=== PATIENT | male | born 1950 | race Caucasian/White ===

== ENCOUNTER 2023-11-06 14:23 | Inpatient (IN) | payer OTHER, MEDICARE ==
[~2023-11-06] VITALS: Ht 170.2 cm; Wt 70.8 kg
[2023-11-06 14:48] VITALS: BP_SYST 56; PULSE 62; RESP 19; TEMP 97.2; O2SAT 96
[2023-11-06 15:11] LABS: HEMOGLOBIN 10.5 g/dL (14.0-18.0); MEAN CORPUSCULAR HEMOGLOBIN 38 pg (27-31); MEAN CORPUSCULAR HGB CONC 34 % (32-36); MEAN CORPUSCULAR VOLUME 111 fL (79.0-98.0); PLATELET COUNT (AUTO) 184 K/uL (130-430); RED BLOOD CELL COUNT(AUTO) 2.78 MIL/uL (4.2-6.2); RED CELL DISTRIBUTION WIDTH 14.3 % (9.0-15.0); WHITE BLOOD COUNT (AUTO) 4.9 K/uL (4.8-10.8)
[2023-11-06] MEDS ORDERED: NACL 0.9% 2,000 ML IV ONE (15:15)
[2023-11-06] MEDS ORDERED: ALBUMIN HUMAN 5% 500 ML IV ONE ×2 (15:15)
[2023-11-06 15:23] LABS: INR 1.1 (0.80-1.20); PROTHROMBIN TIME 11.3 SECS (9.5-12.5)
[2023-11-06 15:28] LABS: ANION GAP 20 (5-15); CALCIUM 9.6 mg/dL (8.4-11.0); CARBON DIOXIDE 17 mmol/L (23-29); CHLORIDE 87 mmol/L (98-107); CREATININE 5.38 mg/dL (0.55-1.30); GLUCOSE 100 mg/dL (74-106); POTASSIUM 4.7 mmol/L (3.5-5.1); SODIUM SERUM 124 mmol/L (136-145); UREA NITROGEN, BLOOD 89 mg/dL (8-21)
[2023-11-06 15:35] LABS: ALANINE AMINOTRANSFERASE 49 U/L (12-78); ALBUMIN 2.2 g/dL (3.4-4.8); ASPARTATE AMINOTRANSFERASE 59 U/L (10-37); BILIRUBIN,DIRECT 0.4 mg/dL (0.0-0.3); CREATINE KINASE, TOTAL 87 U/L (39-308); FREE T4 (FREE THYROXINE) 1.1 ng/dL (0.6-1.6); THYROID STIMULATING HORMONE 3.85 uIu/mL (0.34-4.82); TOTAL BILIRUBIN 0.6 mg/dL (0.0-1.0)
[2023-11-06 15:38] LABS: ATYPICAL LYMPHOCYTES % 1 % (0-0); BAND % (MANUAL) 5 % (0-6); LYMPHOCYTES % (MANUAL) 1 % (20-46); MONOCYTES % (MANUAL) 8 % (0-11); PLATELET ESTIMATE ADEQUATE (ADEQUATE)
[2023-11-06 15:40] LABS: BASOPHILS % (MANUAL) 0 % (0-2); EOSINOPHILS % (MANUAL) 0 % (0-7)
[2023-11-06 15:49] LABS: ACETONE, SERUM NEGATIVE (NEGATIVE)
[2023-11-06] MEDS ORDERED: HYDR500C2 PO (17:06)
[2023-11-06] MEDS ORDERED: LISI10TA29 PO (17:06)
[2023-11-06] MEDS ORDERED: OXYB5TAB16 PO (17:06)
[2023-11-06] MEDS ORDERED: LOM2.5 PO (17:06)
[2023-11-06] MEDS ORDERED: ASPI-1077 PO (17:07)
[2023-11-06] MEDS ORDERED: CHOL100038 PO (17:07)
[2023-11-06 17:20] LABS: BILIRUBIN,URINE NEGATIVE (NEGATIVE); BLOOD, URINE 3+ (NEGATIVE); CLARITY/URINE SL CLOUDY (CLEAR); COLOR,URINE YELLOW (YELLOW); GLUCOSE,URINE NEGATIVE (NEGATIVE); KETONES,URINE NEGATIVE (NEGATIVE); LEUKOCYTE ESTERASE ,URINE 2+ (NEGATIVE); NITRITE, URINE NEGATIVE (NEGATIVE); PROTEIN URINE 2+ (NEGATIVE); UROBILINOGEN,URINE 0.2 (0.2-1.0)
[2023-11-06 17:30] LABS: WBC,URINE >100 /HPF (0-3)
[2023-11-06 17:31] LABS: BACTERIA,URINE MODERATE /HPF (None Seen); MUCUS,URINE None Seen /LPF (None Seen)
[2023-11-06] MEDS ORDERED: D5NS 1,000 ML IV SCH (18:00)
[2023-11-06] MEDS ORDERED: ONDANSETRON HCL 4 MG/2 ML VIAL IVP PRN (21:15)
[2023-11-06] MEDS ORDERED: NALOXONE HCL 0.4 MG/ML AMP (NARCAN) IVP PRN ×2 (21:15)
[2023-11-06] MEDS ORDERED: HYDROcodone/ACETAMIN 10-325 MG TAB PO PRN (21:15)
[2023-11-06] MEDS ORDERED: ACETAMINOPHEN 325 MG TABLET PO PRN (21:15)
[2023-11-06] MEDS ORDERED: DIPHENOXYLATE HCL/ATROP SULF 2.5 MG TAB PO PRN (21:15)
[2023-11-06] MEDS ORDERED: cefTRIAXone 1 GM VIAL ONE (21:54)
[2023-11-06] MEDS: cefTRIAXone 1 GM in D5W 50 ML IV SCH (21:56)
[2023-11-06] MEDS ORDERED: NACL 0.9% 1,000 ML IV ONE (22:30)
[2023-11-06] MEDS ORDERED: NOREPINEPHRINE BITARTRATE 4 MG in NS 246 ML IV PRN (22:30)
[2023-11-06] MEDS ORDERED: NOREPINEPHRINE 4 MG/4 ML VIAL IV ONE (23:25)
[2023-11-06 23:30] VITALS: BP_SYST 95; PULSE 109; RESP 18; TEMP 97; O2SAT 94
[2023-11-06] MEDS: LORazepam 2 MG/ML VIAL IVP PRN (23:46)
[2023-11-07] VITALS (28 sets, daily range): BP systolic 91–152; PULSE 81–121; RESP 12–30; TEMP 97–98.5; O2SAT 94–100
[2023-11-07] MEDS ORDERED: SODIUM BICARBONATE 8.4% JECT 50 MEQ/50 ML SYRINGE ONE ×2 (02:53→15:10)
[2023-11-07] MEDS: SODIUM BICARBONATE 8.4% JECT 50 MEQ in D5/0.45 NS 1,000 ML IV SCH ×3 (02:56→20:41)
[2023-11-07] MEDS: LORazepam 2 MG/ML VIAL IVP PRN ×3 (04:10→15:01)
[2023-11-07 05:54] LABS: ANION GAP 17 (5-15); CALCIUM 8.2 mg/dL (8.4-11.0); CARBON DIOXIDE 14 mmol/L (23-29); CHLORIDE 99 mmol/L (98-107); CREATININE 4.39 mg/dL (0.55-1.30); GLUCOSE 108 mg/dL (74-106); PHOSPHORUS 3.7 mg/dL (2.7-4.5); POTASSIUM 4.2 mmol/L (3.5-5.1); SODIUM SERUM 130 mmol/L (136-145); UREA NITROGEN, BLOOD 79 mg/dL (8-21)
[2023-11-07 06:07] LABS: BASOPHILS % (AUTO) 1.7 % (0.0-2.0); EOSINOPHILS % (AUTO) 1.7 % (0.0-4.0); HEMOGLOBIN 9.3 g/dL (14.0-18.0); LYMPHOCYTES % (AUTO) 1.2 % (20.5-51.5); MEAN CORPUSCULAR HEMOGLOBIN 38 pg (27-31); MEAN CORPUSCULAR HGB CONC 34 % (32-36); MEAN CORPUSCULAR VOLUME 111 fL (79.0-98.0); MONOCYTES # (AUTO) 0.1 K/uL (0.0-1.0); MONOCYTES % (AUTO) 5.6 % (1.7-9.3); NEUTROPHILS # (AUTO) 1.9 K/uL (1.8-7.7); NEUTROPHILS % (AUTO) 89.8 % (40.0-70.0); PLATELET COUNT (AUTO) 123 K/uL (130-430); RED BLOOD CELL COUNT(AUTO) 2.43 MIL/uL (4.2-6.2)
[2023-11-07 08:04] LABS: WHITE BLOOD COUNT (AUTO) 2.2 K/uL (4.8-10.8)
[2023-11-07] MEDS ORDERED: HYDROXYUREA 500 MG CAPSULE (HYDREA) PO SCH (09:00)
[2023-11-07] MEDS: ASPIRIN 81 MG TAB.CHEW PO SCH (09:06)
[2023-11-07] MEDS: CHOLECALCIFEROL (VITAMIN D3) 2,000 UNIT TABLET PO SCH (09:06)
[2023-11-07] MEDS: oxyBUTYnin chloride 5 MG TABLET PO SCH ×3 (09:06→20:40)
[2023-11-07] MEDS: cefTRIAXone 1 GM in D5W 50 ML IV SCH (20:40)
[2023-11-08] VITALS (14 sets, daily range): BP systolic 101–148; PULSE 68–104; RESP 16–34; TEMP 97.8–98.5; O2SAT 96–100
[2023-11-08] MEDS: SODIUM BICARBONATE 8.4% JECT 50 MEQ in D5/0.45 NS 1,000 ML IV SCH ×2 (02:04→19:12)
[2023-11-08] MEDS: LORazepam 2 MG/ML VIAL IVP PRN (02:04)
[2023-11-08 05:51] LABS: BILIRUBIN,URINE NEGATIVE (NEGATIVE); BLOOD, URINE 3+ (NEGATIVE); CLARITY/URINE SL CLOUDY (CLEAR); COLOR,URINE YELLOW (YELLOW); GLUCOSE,URINE TRACE (NEGATIVE); KETONES,URINE NEGATIVE (NEGATIVE); LEUKOCYTE ESTERASE ,URINE TRACE (NEGATIVE); NITRITE, URINE NEGATIVE (NEGATIVE); PROTEIN URINE 2+ (NEGATIVE); UROBILINOGEN,URINE 0.2 (0.2-1.0)
[2023-11-08 06:05] LABS: BASOPHILS % (AUTO) 0.4 % (0.0-2.0); EOSINOPHILS % (AUTO) 0.4 % (0.0-4.0); HEMATOCRIT 25.9 % (36-54); HEMOGLOBIN 8.8 g/dL (14.0-18.0); LYMPHOCYTES % (AUTO) 1.8 % (20.5-51.5); MEAN CORPUSCULAR HEMOGLOBIN 38 pg (27-31); MEAN CORPUSCULAR HGB CONC 34 % (32-36); MEAN CORPUSCULAR VOLUME 112 fL (79.0-98.0); MONOCYTES # (AUTO) 0.2 K/uL (0.0-1.0); MONOCYTES % (AUTO) 8.5 % (1.7-9.3); NEUTROPHILS # (AUTO) 2.1 K/uL (1.8-7.7); NEUTROPHILS % (AUTO) 88.9 % (40.0-70.0); PLATELET COUNT (AUTO) 105 K/uL (130-430); RED BLOOD CELL COUNT(AUTO) 2.32 MIL/uL (4.2-6.2); RED CELL DISTRIBUTION WIDTH 14.3 % (9.0-15.0); RETICULOCYTE COUNT 0.6 % (0.5-1.5); WHITE BLOOD COUNT (AUTO) 2.4 K/uL (4.8-10.8)
[2023-11-08 06:05] LABS: BACTERIA,URINE FEW /HPF (None Seen); CALCIUM OXALATE CRYSTALS,UR None Seen /HPF (None Seen); CALCIUM PHOSPHATE CRYSTALS,UR None Seen /HPF (None Seen); COARSE GRANULAR CASTS,URINE None Seen /LPF (None Seen); FINE GRANULAR CASTS,URINE None Seen /LPF (None Seen); HYALINE CASTS, URINE None Seen /LPF (None Seen); MUCUS,URINE None Seen /LPF (None Seen); OTHER CASTS, URINE None Seen /LPF (None Seen); OTHER CRYSTALS,URINE None Seen /HPF (None Seen); TRICHOMONAS,URINE None Seen /HPF (None Seen); TRIPLE PHOSPHATE CRYSTAL,UR None Seen /HPF (None Seen); URIC ACID CRYSTALS,URINE None Seen /HPF (None Seen); URINE AMORPHOUS PHOSPHATES None Seen /HPF (None Seen); URINE AMORPHOUS URATE None Seen /HPF (None Seen); WAXY CASTS,URINE None Seen /LPF (None Seen); YEAST,URINE None Seen /HPF (None Seen)
[2023-11-08 06:13] LABS: ANION GAP 14 (5-15); CALCIUM 8.5 mg/dL (8.4-11.0); CARBON DIOXIDE 21 mmol/L (23-29); CHLORIDE 101 mmol/L (98-107); CREATININE 3.79 mg/dL (0.55-1.30); GLUCOSE 162 mg/dL (74-106); PHOSPHORUS 4.1 mg/dL (2.7-4.5); POTASSIUM 3.7 mmol/L (3.5-5.1); SODIUM SERUM 136 mmol/L (136-145); UREA NITROGEN, BLOOD 71 mg/dL (8-21)
[2023-11-08 06:14] LABS: TOTAL IRON BIND. CAPACITY 89 ug/dL (250-450)
[2023-11-08 07:33] LABS: ERYTHROCYTE SEDIMENTATION RATE 38 MM/HR (0-15)
[2023-11-08] MEDS: oxyBUTYnin chloride 5 MG TABLET PO SCH ×3 (08:58→22:02)
[2023-11-08] MEDS: CHOLECALCIFEROL (VITAMIN D3) 2,000 UNIT TABLET PO SCH (08:58)
[2023-11-08] MEDS: ASPIRIN 81 MG TAB.CHEW PO SCH (14:56)
[2023-11-08] MEDS: cefTRIAXone 1 GM in D5W 50 ML IV SCH (22:02)
[2023-11-09 01:05] VITALS: BP_SYST 128; PULSE 87; RESP 17; TEMP 97.5; O2SAT 95
[2023-11-09] MEDS: HYDROcodone/ACETAMIN 5-325 MG TAB (NORCO/ VICODIN) PO PRN (03:07)
[2023-11-09] MEDS: SODIUM BICARBONATE 8.4% JECT 50 MEQ in D5/0.45 NS 1,000 ML IV SCH ×3 (05:24→20:16)
[2023-11-09 05:32] LABS: ERYTHROCYTE SEDIMENTATION RATE 36 MM/HR (0-15)
[2023-11-09 05:40] LABS: EOSINOPHILS % (AUTO) 0.6 % (0.0-4.0); HEMOGLOBIN 8.4 g/dL (14.0-18.0); LYMPHOCYTES % (AUTO) 2.4 % (20.5-51.5); MEAN CORPUSCULAR HEMOGLOBIN 38 pg (27-31); MEAN CORPUSCULAR HGB CONC 34 % (32-36); MEAN CORPUSCULAR VOLUME 111 fL (79.0-98.0); MONOCYTES # (AUTO) 0.2 K/uL (0.0-1.0); MONOCYTES % (AUTO) 8.4 % (1.7-9.3); NEUTROPHILS # (AUTO) 1.8 K/uL (1.8-7.7); PLATELET COUNT (AUTO) 90 K/uL (130-430); RED BLOOD CELL COUNT(AUTO) 2.25 MIL/uL (4.2-6.2); RED CELL DISTRIBUTION WIDTH 14.5 % (9.0-15.0)
[2023-11-09 06:22] LABS: ALANINE AMINOTRANSFERASE 48 U/L (12-78); ALBUMIN 1.5 g/dL (3.4-4.8); ANION GAP 10 (5-15); ASPARTATE AMINOTRANSFERASE 56 U/L (10-37); CARBON DIOXIDE 23 mmol/L (23-29); CHLORIDE 104 mmol/L (98-107); CREATININE 3.12 mg/dL (0.55-1.30); GLUCOSE 186 mg/dL (74-106); PHOSPHORUS 3.2 mg/dL (2.7-4.5); POTASSIUM 3.3 mmol/L (3.5-5.1); SODIUM SERUM 137 mmol/L (136-145); TOTAL BILIRUBIN 0.3 mg/dL (0.0-1.0); UREA NITROGEN, BLOOD 59 mg/dL (8-21)
[2023-11-09 08:00] VITALS: BP_SYST 102; PULSE 71; RESP 17; TEMP 97.7; O2SAT 96
[2023-11-09 08:11] LABS: NEUTROPHILS % (AUTO) 88.6 % (40.0-70.0)
[2023-11-09] MEDS: ASPIRIN 81 MG TAB.CHEW PO SCH (09:31)
[2023-11-09] MEDS: oxyBUTYnin chloride 5 MG TABLET PO SCH ×3 (09:31→22:52)
[2023-11-09] MEDS: CHOLECALCIFEROL (VITAMIN D3) 2,000 UNIT TABLET PO SCH (09:32)
[2023-11-09 11:04] VITALS: BP_SYST 144; PULSE 94; RESP 16; TEMP 97; O2SAT 93
[2023-11-09 15:24] VITALS: BP_SYST 136; PULSE 94; RESP 16; TEMP 97.7; O2SAT 95
[2023-11-09 16:21] LABS: CLARITY/URINE SLIGHTLY CLOUDY (CLEAR); COLOR,URINE RED (YELLOW); GLUCOSE,URINE TRACE (NEGATIVE); KETONES,URINE NEGATIVE (NEGATIVE); PH,URINE 6.5 (5.0-8.0); PROTEIN URINE 3+ (NEGATIVE)
[2023-11-09 16:22] LABS: BILIRUBIN,URINE NEGATIVE (NEGATIVE); BLOOD, URINE 3+ (NEGATIVE); LEUKOCYTE ESTERASE ,URINE TRACE (NEGATIVE); NITRITE, URINE NEGATIVE (NEGATIVE); UROBILINOGEN,URINE 0.2 (0.2-1.0)
[2023-11-09 17:39] LABS: BACTERIA,URINE None Seen /HPF (None Seen); RBC,URINE >100 /HPF (0-3)
[2023-11-09 20:00] VITALS: BP_SYST 122; PULSE 90; RESP 18; TEMP 98.3; O2SAT 97
[2023-11-09] MEDS: NYSTATIN 15 GM TOPICAL POWDER TP SCH (21:00)
[2023-11-09] MEDS: cefTRIAXone 1 GM in D5W 50 ML IV SCH (22:52)
[2023-11-09 23:17] LABS: CHLORIDE,URINE RANDOM 52 mmol/L (55-125)
[2023-11-10 00:05] VITALS: BP_SYST 111; PULSE 88; RESP 18; TEMP 97.8; O2SAT 96
[2023-11-10 01:06] LABS: FOLATE (FOLIC ACID) 3.2 ng/mL (>3.0)
[2023-11-10 05:34] LABS: BASOPHILS % (AUTO) 0.1 % (0.0-2.0); EOSINOPHILS % (AUTO) 0.9 % (0.0-4.0); HEMATOCRIT 26.1 % (36-54); HEMOGLOBIN 8.9 g/dL (14.0-18.0); LYMPHOCYTES # (AUTO) 0.1 K/uL (1.0-5.5); LYMPHOCYTES % (AUTO) 2.4 % (20.5-51.5); MEAN CORPUSCULAR HEMOGLOBIN 38 pg (27-31); MEAN CORPUSCULAR HGB CONC 34 % (32-36); MEAN CORPUSCULAR VOLUME 111 fL (79.0-98.0); MONOCYTES # (AUTO) 0.2 K/uL (0.0-1.0); MONOCYTES % (AUTO) 6.2 % (1.7-9.3); NEUTROPHILS # (AUTO) 3.2 K/uL (1.8-7.7); NEUTROPHILS % (AUTO) 90.4 % (40.0-70.0); PLATELET COUNT (AUTO) 110 K/uL (130-430); RED BLOOD CELL COUNT(AUTO) 2.35 MIL/uL (4.2-6.2); RED CELL DISTRIBUTION WIDTH 14.3 % (9.0-15.0); WHITE BLOOD COUNT (AUTO) 3.6 K/uL (4.8-10.8)
[2023-11-10 05:38] LABS: ERYTHROCYTE SEDIMENTATION RATE 18 MM/HR (0-15)
[2023-11-10 05:53] LABS: ANION GAP 9 (5-15); CALCIUM 8.4 mg/dL (8.4-11.0); CARBON DIOXIDE 27 mmol/L (23-29); CHLORIDE 103 mmol/L (98-107); CREATININE 2.59 mg/dL (0.55-1.30); GLUCOSE 150 mg/dL (74-106); PHOSPHORUS 2.9 mg/dL (2.7-4.5); POTASSIUM 3.3 mmol/L (3.5-5.1); SODIUM SERUM 139 mmol/L (136-145); UREA NITROGEN, BLOOD 43 mg/dL (8-21)
[2023-11-10 08:00] VITALS: BP_SYST 152; PULSE 70; RESP 18; TEMP 98.3; O2SAT 98
[2023-11-10] MEDS: NYSTATIN 15 GM TOPICAL POWDER TP SCH ×2 (09:00→20:47)
[2023-11-10] MEDS: ASPIRIN 81 MG TAB.CHEW PO SCH (09:06)
[2023-11-10] MEDS: CHOLECALCIFEROL (VITAMIN D3) 2,000 UNIT TABLET PO SCH (09:06)
[2023-11-10] MEDS: oxyBUTYnin chloride 5 MG TABLET PO SCH ×3 (09:06→20:44)
[2023-11-10] MEDS: SODIUM BICARBONATE 8.4% JECT 50 MEQ in D5/0.45 NS 1,000 ML IV SCH ×2 (09:09→23:17)
[2023-11-10 11:09] VITALS: BP_SYST 134; PULSE 97; RESP 16; TEMP 97.4; O2SAT 97
[2023-11-10 15:06] VITALS: BP_SYST 120; PULSE 72; RESP 16; TEMP 98.3; O2SAT 96
[2023-11-10 15:46] VITALS: O2SAT 98
[2023-11-10 20:00] VITALS: BP_SYST 122; PULSE 84; RESP 18; TEMP 97.4; O2SAT 98
[2023-11-10] MEDS: cefTRIAXone 1 GM in D5W 50 ML IV SCH (20:46)
[2023-11-10] MEDS: HYDROcodone/ACETAMIN 5-325 MG TAB (NORCO/ VICODIN) PO PRN (23:16)
[2023-11-11 05:51] LABS: ERYTHROCYTE SEDIMENTATION RATE 11 MM/HR (0-15)
[2023-11-11 05:58] LABS: BASOPHILS % (AUTO) 0.2 % (0.0-2.0); HEMATOCRIT 24.4 % (36-54); HEMOGLOBIN 8.6 g/dL (14.0-18.0); LYMPHOCYTES # (AUTO) 0.1 K/uL (1.0-5.5); LYMPHOCYTES % (AUTO) 3.4 % (20.5-51.5); MEAN CORPUSCULAR HEMOGLOBIN 39 pg (27-31); MEAN CORPUSCULAR HGB CONC 35 % (32-36); MEAN CORPUSCULAR VOLUME 110 fL (79.0-98.0); MONOCYTES # (AUTO) 0.2 K/uL (0.0-1.0); MONOCYTES % (AUTO) 5.8 % (1.7-9.3); NEUTROPHILS # (AUTO) 3.7 K/uL (1.8-7.7); NEUTROPHILS % (AUTO) 89.6 % (40.0-70.0); PLATELET COUNT (AUTO) 102 K/uL (130-430); RED BLOOD CELL COUNT(AUTO) 2.22 MIL/uL (4.2-6.2); RED CELL DISTRIBUTION WIDTH 14.1 % (9.0-15.0); WHITE BLOOD COUNT (AUTO) 4.1 K/uL (4.8-10.8)
[2023-11-11 06:40] LABS: ANION GAP 7 (5-15); CALCIUM 8.3 mg/dL (8.4-11.0); CARBON DIOXIDE 27 mmol/L (23-29); CHLORIDE 102 mmol/L (98-107); CREATININE 2.22 mg/dL (0.55-1.30); GLUCOSE 126 mg/dL (74-106); PHOSPHORUS 2.9 mg/dL (2.7-4.5); POTASSIUM 3.1 mmol/L (3.5-5.1); SODIUM SERUM 136 mmol/L (136-145); UREA NITROGEN, BLOOD 34 mg/dL (8-21)
[2023-11-11 08:00] VITALS: O2SAT 98
[2023-11-11 08:32] VITALS: BP_SYST 125; PULSE 81; RESP 18; TEMP 98; O2SAT 98
[2023-11-11] MEDS: CHOLECALCIFEROL (VITAMIN D3) 2,000 UNIT TABLET PO SCH (08:59)
[2023-11-11] MEDS: oxyBUTYnin chloride 5 MG TABLET PO SCH ×3 (08:59→21:55)
[2023-11-11] MEDS: ASPIRIN 81 MG TAB.CHEW PO SCH (08:59)
[2023-11-11] MEDS: SODIUM BICARBONATE 8.4% JECT 50 MEQ in D5/0.45 NS 1,000 ML IV SCH ×2 (09:00→21:00)
[2023-11-11] MEDS: HYDROcodone/ACETAMIN 5-325 MG TAB (NORCO/ VICODIN) PO PRN ×2 (09:00→18:42)
[2023-11-11] MEDS: NYSTATIN 15 GM TOPICAL POWDER TP SCH ×2 (09:01→21:56)
[2023-11-11] MEDS ORDERED: POTASSIUM CHLORIDE 20 MEQ TABLET.ER PO ONE (09:15)
[2023-11-11] MEDS ORDERED: CIPR250T4 PO (09:23)
[2023-11-11 11:04] VITALS: BP_SYST 114; PULSE 83; RESP 16; TEMP 99.1; O2SAT 100
[2023-11-11 14:56] VITALS: BP_SYST 112; PULSE 77; RESP 16; TEMP 97.2; O2SAT 97
[2023-11-11 20:30] VITALS: BP_SYST 116; PULSE 82; RESP 18; TEMP 98.5; O2SAT 96
[2023-11-11] MEDS: cefTRIAXone 1 GM in D5W 50 ML IV SCH (21:56)
[2023-11-11 22:00] VITALS: O2SAT 96
[2023-11-12 00:26] VITALS: BP_SYST 106; PULSE 86; RESP 17; TEMP 96.5; O2SAT 94
[2023-11-12] MEDS: SODIUM BICARBONATE 8.4% JECT 50 MEQ in D5/0.45 NS 1,000 ML IV SCH (06:12)
[2023-11-12 06:38] LABS: BASOPHILS % (AUTO) 0.3 % (0.0-2.0); EOSINOPHILS % (AUTO) 0.7 % (0.0-4.0); HEMATOCRIT 25.4 % (36-54); HEMOGLOBIN 8.9 g/dL (14.0-18.0); LYMPHOCYTES # (AUTO) 0.2 K/uL (1.0-5.5); LYMPHOCYTES % (AUTO) 3.5 % (20.5-51.5); MEAN CORPUSCULAR HEMOGLOBIN 38 pg (27-31); MEAN CORPUSCULAR HGB CONC 35 % (32-36); MEAN CORPUSCULAR VOLUME 109 fL (79.0-98.0); MONOCYTES # (AUTO) 0.3 K/uL (0.0-1.0); MONOCYTES % (AUTO) 5.4 % (1.7-9.3); NEUTROPHILS # (AUTO) 4.4 K/uL (1.8-7.7); NEUTROPHILS % (AUTO) 90.1 % (40.0-70.0); PLATELET COUNT (AUTO) 125 K/uL (130-430); RED BLOOD CELL COUNT(AUTO) 2.34 MIL/uL (4.2-6.2); RED CELL DISTRIBUTION WIDTH 14.5 % (9.0-15.0); WHITE BLOOD COUNT (AUTO) 4.8 K/uL (4.8-10.8)
[2023-11-12 07:17] LABS: ANION GAP 6 (5-15); CALCIUM 8.6 mg/dL (8.4-11.0); CARBON DIOXIDE 27 mmol/L (23-29); CHLORIDE 101 mmol/L (98-107); GLUCOSE 101 mg/dL (74-106); PHOSPHORUS 2.8 mg/dL (2.7-4.5); POTASSIUM 4.1 mmol/L (3.5-5.1); SODIUM SERUM 134 mmol/L (136-145); UREA NITROGEN, BLOOD 29 mg/dL (8-21)
[2023-11-12 08:00] VITALS: O2SAT 97
[2023-11-12] MEDS: NYSTATIN 15 GM TOPICAL POWDER TP SCH (09:00)
[2023-11-12] MEDS: oxyBUTYnin chloride 5 MG TABLET PO SCH ×2 (09:45→15:00)
[2023-11-12] MEDS: ASPIRIN 81 MG TAB.CHEW PO SCH (09:46)
[2023-11-12] MEDS: CHOLECALCIFEROL (VITAMIN D3) 2,000 UNIT TABLET PO SCH (09:46)
[2023-11-12 11:02] VITALS: BP_SYST 118; PULSE 96; RESP 16; TEMP 97.5; O2SAT 100
[2023-11-12 13:47] VITALS: BP_SYST 118; PULSE 96; RESP 16; TEMP 97.5; O2SAT 100
== END 2023-11-12 16:00 | disposition home health service (06) | DRG 871 ==
LOC: SED 14:23 → STU 17:35 → SIC 23:05 → STU 11-08 11:30 → SMU 11-11 23:37
PROVIDERS: ADMIT Preventive Medicine Preventive Medicine/Occupational Environmental Medicine; ATTEND Preventive Medicine Preventive Medicine/Occupational Environmental Medicine
DX: A41.59 Other Gram-negative sepsis (principal); E43 Unspecified severe protein-calorie malnutrition; R65.21 Severe sepsis with septic shock; N39.0 Urinary tract infection, site not specified; D61.818 Other pancytopenia; N17.9 Acute kidney failure, unspecified; R57.9 Shock, unspecified; E87.1 Hypo-osmolality and hyponatremia; E87.20 Acidosis, unspecified; B96.1 Klebsiella pneumoniae [K. pneumoniae] as the cause of diseases classified elsewhere; E86.0 Dehydration; E78.5 Hyperlipidemia, unspecified; R74.01 Elevation of levels of liver transaminase levels; D75.89 Other specified diseases of blood and blood-forming organs; E88.09 Other disorders of plasma-protein metabolism, not elsewhere classified; R53.81 Other malaise; E83.119 Hemochromatosis, unspecified; E83.52 Hypercalcemia; E87.6 Hypokalemia; I12.9 Hypertensive chronic kidney disease with stage 1 through stage 4 chronic kidney disease, or unspecified chronic kidney disease; N18.32 Chronic kidney disease, stage 3b; Z85.46 Personal history of malignant neoplasm of prostate; Z79.82 Long term (current) use of aspirin; Z79.899 Other long term (current) drug therapy; Z68.24 Body mass index [BMI] 24.0-24.9, adult
CPT/HCPCS: 36415; 71045; 76770; 80048; 80053; 80076; 81000; 81001; 81015; 82009; 82435; 82550; 82570; 82607; 82728; 82746; 82962; 83540; 83550; 83605; 83735; 84100; 84302; 84439; 84443; 84484; 85007; 85025; 85027; 85044; 85610-TC; 85651-TC; 85730-TC; 87040; 87081; 87086; 93005; 96365; 97110-GP; 97116-GP; 97530-GP; 99285; G0378; J0696; J2060; J7060; P9041